=== PATIENT | male | born 1985 | race Two or more races ===

== ENCOUNTER 2023-06-14 19:31 | Emergency (ER) | payer SELFPAY ==
[~2023-06-14] VITALS: Ht 172.7 cm; Wt 70.0 kg
[2023-06-14 20:41] VITALS: BP 136/93; PULSE 97; RESP 18; TEMP 97.5
[2023-06-14 20:42] VITALS: O2SAT 98
[2023-06-14] MEDS ORDERED: TOPIRAMATE 100 MG TAB PO ONE (21:30)
[2023-06-14] MEDS ORDERED: levETIRAcetam 500 MG TAB PO ONE (21:30)
[2023-06-14] MEDS ORDERED: GABAPENTIN 300 MG CAP PO ONE (21:30)
[2023-06-14] MEDS ORDERED: LISI-275 PO (21:34)
[2023-06-14] MEDS ORDERED: GABA-1250 PO (21:34)
[2023-06-14] MEDS ORDERED: METO25TA5 PO (21:34)
[2023-06-14] MEDS ORDERED: TOPI100T29 PO (21:34)
[2023-06-14] MEDS ORDERED: LEVE750T16 PO (21:34)
== END 2023-06-14 22:20 | disposition home or self-care (01) ==
LOC: ER 19:31 → EDBD 19:31 → ER 22:20
DX: S60.512A Abrasion of left hand, initial encounter (principal); I10 Essential (primary) hypertension; Z88.8 Allergy status to other drugs, medicaments and biological substances; W22.8XXA Striking against or struck by other objects, initial encounter; Y93.39 Activity, other involving climbing, rappelling and jumping off; Y92.89 Other specified places as the place of occurrence of the external cause; Y99.8 Other external cause status